=== PATIENT | female | born 1990 | race Hispanic/Latino ===

== ENCOUNTER 2018-07-03 16:35 | Emergency (ER) | payer MEDICAID ==
[2018-07-03] MEDS ORDERED: IBUPROFEN 600 MG TABLET ONE (17:09)
[2018-07-03] MEDS ORDERED: ACETAMINOPHEN EXTRA STRENGTH 500 MG TABLET ONE (17:09)
== END 2018-07-03 17:26 | disposition home or self-care (01) ==
LOC: EDH 16:35
DX: K08.89 Other specified disorders of teeth and supporting structures (principal); Z88.1 Allergy status to other antibiotic agents; Z88.2 Allergy status to sulfonamides; Z98.890 Other specified postprocedural states

== ENCOUNTER 2024-05-31 13:14 | Emergency (ER) | payer BC, MEDICAID ==
[~2024-05-31] VITALS: Ht 154.9 cm; Wt 87.5 kg
[2024-05-31 13:37] LABS: BASOPHILS # (AUTO) 0.04 K/uL (0.00-0.20); BASOPHILS % (AUTO) 0.4 % (0.0-5.0); EOSINOPHILS # (AUTO) 0.16 K/uL (0.00-0.70); EOSINOPHILS % (AUTO) 1.4 % (0.0-8.0); HEMATOCRIT 38.8 % (36-48); IMMATURE GRANULOCYTE ABSOLUTE 0.04 K/uL (0-1); LYMPHOCYTES # (AUTO) 3.7 K/uL (1.0-4.8); LYMPHOCYTES % (AUTO) 32.4 % (21.0-51.0); MEAN CORPUSCULAR HEMOGLOBIN 29.7 pg (27.0-33.0); MEAN CORPUSCULAR VOLUME 87.2 fL (79-99); MONOCYTES # (AUTO) 0.9 K/uL (0.1-1.0); MONOCYTES % (AUTO) 7.7 % (3.0-13.0); NEUTROPHILS # (AUTO) 6.5 K/uL (1.8-7.7); NEUTROPHILS % (AUTO) 57.7 % (40.0-77.0); PLATELET COUNT (AUTO) 273 K/uL (130-400); RED BLOOD CELL COUNT(AUTO) 4.45 MIL/uL (4.00-5.50); RED CELL DISTRIBUTION WIDTH 13.5 % (11.0-15.5); WHITE BLOOD COUNT (AUTO) 11.3 K/uL (4.8-10.8)
[2024-05-31 13:46] LABS: CREATININE 0.7 mg/dL (0.5-1.0)
[2024-05-31 13:50] LABS: POTASSIUM 2.9 mmol/L (3.5-5.1)
[2024-05-31] MEDS: ondanSETRON 4MG INJ IVP ONE (14:39)
[2024-05-31] MEDS: 0.9%NACL 1000ML 1,000 ML IV ONE (14:39)
[2024-05-31] MEDS: PANTOPrazole 40 MG/VIAL IVP ONE (14:39)
[2024-05-31] MEDS: PoTASSium BIcarbonate/CIT AC 25 MEQ TABLET.EFF PO ONE (15:28)
[2024-05-31 16:17] VITALS: BP 110/65; PULSE 76; RESP 16; TEMP 99.3; O2SAT 100
[2024-05-31] MEDS ORDERED: ONDA-243 PO (16:38)
[2024-05-31] MEDS ORDERED: AZIT500T4 PO (16:38)
[2024-05-31 16:40] LABS: APPEARANCE,URINE CLEAR (CLEAR); BILIRUBIN,URINE NEGATIVE (NEGATIVE); COLOR,URINE COLORLESS (YELLOW); GLUCOSE, URINE (UA) NEGATIVE (NEGATIVE); KETONES,URINE 5 mg/dL (NEGATIVE); LEUKOCYTE ESTERASE ,URINE NEGATIVE Leu/uL (NEGATIVE); NITRATE,URINE NEGATIVE (NEGATIVE); OCCULT BLOOD,URINE NEGATIVE (NEGATIVE); PH,URINE 6.5 (5.0-8.0); PROTEIN,URINE NEGATIVE (NEGATIVE); UROBILINOGEN,URINE 0.2 mg/dL (0.2-1.0)
[2024-05-31 16:41] LABS: ADD UA MICROSCOPIC YES
[2024-05-31 16:46] LABS: BACTERIA,URINE RARE /HPF (None Seen); HCG,QUALITATIVE URINE NEGATIVE (NEGATIVE); RBC,URINE 0-1 /HPF (0-1); SQUAMOUS EPITHELIAL CELL,UR RARE /HPF (0-2)
== END 2024-05-31 17:03 | disposition home or self-care (01) ==
LOC: EDH 13:14
DX: K52.9 Noninfective gastroenteritis and colitis, unspecified (principal); F31.9 Bipolar disorder, unspecified; F41.9 Anxiety disorder, unspecified; Z88.0 Allergy status to penicillin; Z88.2 Allergy status to sulfonamides; Z90.49 Acquired absence of other specified parts of digestive tract; Z90.721 Acquired absence of ovaries, unilateral; Z98.51 Tubal ligation status; Z98.890 Other specified postprocedural states
CPT/HCPCS: 99284; 96374; 96361; 96375; 80048; 83690; 85025; 81001; 81025; 36415; J7030; J2405; J2470